=== PATIENT | female | born 1950 | race African-American/Black ===

== ENCOUNTER 2024-04-04 06:31 | Observation (INO) ==
[~2024-04-04 06:31] MED LIST: Metoclopramide 5 MG/ML VIAL (10 mg) IV PRN; NS 0.45% 1000 ml BAG 1,000 ML IV SCH; Naloxone 0.4 mg VIAL 0.4 mg/ml 1 ml VIAL IV PRN; Ondansetron 4 mg VIAL 2 MG/ML 2 ml VIAL IV PRN
[2024-04-04] MEDS ORDERED: ceFAZolin 2 GM PREMIX 2 GM/50 ML BAG ONE (06:54)
[2024-04-04] MEDS ORDERED: fentaNYL 100 mcg/2 ml 50 MCG/ML VIAL ONE ×2 (06:59→12:44)
[2024-04-04] MEDS ORDERED: ROPIVACAINE 5 MG/ML 30 ML BTL (0.5%) ONE (06:59)
[2024-04-04] MEDS ORDERED: Midazolam 2 mg/2 ml VIAL 1 mg/ml 2 ml VIAL (2 mg) ONE ×2 (06:59→09:24)
[2024-04-04] MEDS ORDERED: Lidocaine 2% PF 5 ML VIAL ONE (07:00)
[2024-04-04] MEDS ORDERED: Phenylephrine IV 10 MG/ML 1 ml VIAL ONE (07:00)
[2024-04-04 07:45] LABS: Rapid COVID-19 Molecular Undetected (Undetected)
[2024-04-04] MEDS ORDERED: Dexamethasone IV 4 MG/ML VIAL 1 ml VIAL ONE (09:54)
[2024-04-04] MEDS ORDERED: Ondansetron 4 mg VIAL 2 MG/ML 2 ml VIAL ONE (09:54)
[2024-04-04] MEDS ORDERED: Glycopyrrolate IV 0.2 MG/ML 1 ML VIAL ONE (10:03)
[2024-04-04] MEDS ORDERED: Esmolol 10 MG/ML 10 ML (100 mg) IV ONE (11:34)
[2024-04-04] MEDS ORDERED: Calcium Carb (TUMS) 500 mg CHEW TAB PO PRN (12:08)
[2024-04-04] MEDS ORDERED: Magnesium Hydroxide LIQ 30 ML UDC PO PRN (12:08)
[2024-04-04] MEDS ORDERED: Morphine 2 MG/ML SYRINGE IV PRN (12:08)
[2024-04-04] MEDS ORDERED: Ondansetron 4 mg VIAL 2 MG/ML 2 ml VIAL IV PRN (12:08)
[2024-04-04] MEDS ORDERED: Lactulose 30 ml UDC PO PRN (12:08)
[2024-04-04] MEDS ORDERED: Ondansetron ODT 4 mg TAB 4 MG TAB PO PRN (12:08)
[2024-04-04] MEDS: fentaNYL 100 mcg/2 ml 50 MCG/ML VIAL IV PRN (12:52)
[2024-04-04] MEDS: Lactated Ringers 1000 ml BAG 1,000 ML IV SCH ×2 (14:35→15:40)
[2024-04-04] MEDS: Buffered Lidocaine 1% SYRIN 1 ml INTRADERM ONE (15:39)
[2024-04-04] MEDS: Acetaminophen IV 1 GM/100ML 1,000 MG/100 ML BAG IV ONE (15:39)
[2024-04-04] MEDS: Scopolamine 1 mg/72hr PATCH TRANSDERM ONE (15:40)
[2024-04-04] MEDS: ceFAZolin 2 GM PREMIX 2 GM/50 ML BAG IV SCH (18:03)
[2024-04-04] MEDS: Magnesium Hydroxide LIQ 30 ML UDC PO SCH (22:24)
[2024-04-05] MEDS: ceFAZolin 2 GM PREMIX 2 GM/50 ML BAG IV SCH (05:04)
[2024-04-05 09:58] LABS: Hematocrit 23.6 % (35-45); Hemoglobin 7.7 g/dL (11.5-14.3); Mean Platelet Volume 7.6 fL (7.5-11.2); Platelet Count 241 10^3/uL (150-450)
[2024-04-05 10:28] VITALS: BP 133/76
[2024-04-05 10:28] LABS: Calcium 8.1 mg/dL (8.6-10.3); Creatinine, Serum 2.08 mg/dL (0.51-0.95); Potassium 4.3 mmol/L (3.5-5.0); eGFR CKD-EPI 24.5 (>60)
[2024-04-05] MEDS: Vitamin THERAPEUTIC TAB PO SCH (11:11)
== END 2024-04-05 14:30 | disposition home or self-care (01) ==
LOC: OR 06:31 → SSU 06:31
PROVIDERS: ADMIT Orthopaedic Surgery Adult Reconstructive Orthopaedic Surgery; ATTEND Orthopaedic Surgery Adult Reconstructive Orthopaedic Surgery